=== PATIENT | male | born 1945 | race Caucasian/White ===

== ENCOUNTER 2021-01-30 15:28 | Emergency (ER) | payer OTHER ==
--- NOTE | 2021-01-30 15:50 | ED ---
General Adult HPI - General Stated complaint: CPR - History of Present Illness Initial comments: Dictation was produced using [employer] dictation software. please excuse any grammatical, word or spelling errors. Chief Complaint: 75-year-old male brought in for cardiac arrest History of Present Illness: 75-year-old male who is brought in by EMS for cardiac arrest. Patient allegedly had a witnessed arrest at 2:34 PM. He was at a residence house in a hole when all of a sudden he collapsed. EMS was called right away in CPR was initiated. EMS reports that immediately on scene CPR was started. His initial rhythm was ventricular fibrillation. He was given defibrillation by EMS. Next monitor check patient allegedly had asystole. CPR was continued and patient was then found to be asystole. Shortly after patient's rhythm changed to pulseless electrical activity. Patient was driven to the emergency department. He arrived to us at approximately 3:31 PM. He was on the Sanjeev monitor. EMS reports that patient has extensive history of coronary artery disease status post multivessel coronary artery bypass grafting. Patient was ventilated using a Moustapha tube. Unable to obtain PHYSICAL EXAM: General Impression: Obtunded, unresponsive HEENT: Normocephalic atraumatic, cyanotic, pale Cardiovascular: No palpable pulse Chest: Bilateral breath sounds Abdomen: Obese abdomen Musculoskeletal: Cyanotic, pale extremities Motor: No movement Neurological: Pupils 4 mm, nonreactive ED course: 75-year-old male received in our emergency department at approximately 3:31 PM. According to history of present illness agents cardiac arrest likely secondary to myocardial infarction. He had undergone almost approximately one hour of cardiopulmonary resuscitation prior to arrival. Patient did not have a palpable pulse. He did have a very thready ultrasound will pulse. CPR was continued for approximately 3 cycles. Point of care bedside ultrasound of the heart did not show any life-sustaining cardiac activity. Patient was given calcium, atropine, sodium bicarbonate with no change. Patient became more bradycardic. Time of was announced at 3:39 PM. was notified of patient's expiration. Case discussed with medical records clerk. - Related Data Home Medications Medication Instructions Recorded Confirmed Aspirin [Adult Low Dose Aspirin EC] 81 mg PO QAM 11/23/18 11/23/18 Furosemide [Lasix] 80 mg PO QAM 11/23/18 11/23/18 Isosorbide Dinitrate 30 mg PO QAM 11/23/18 11/23/18 Losartan [Cozaar] 25 mg PO QAM 11/23/18 11/23/18 Metoprolol Succinate [Toprol XL] 12.5 mg PO QAM 11/23/18 11/23/18 Rosuvastatin Calcium 5 mg PO HS 11/23/18 11/23/18 amLODIPine [Norvasc] 10 mg PO QAM 11/23/18 11/23/18 Allergies Allergy/AdvReac Type Severity Reaction Status Date / Time No Known Allergies Allergy Verified 01/30/21 16:53 Review of Systems ROS Statement: Those systems with pertinent positive or pertinent negative responses have been documented in the HPI. ROS Other: All systems not noted in ROS Statement are negative. Past Medical History Past Medical History: Hyperlipidemia, Hypertension Additional Past Medical History / Comment(s): AGENT ORANGE HAS CAUSED CARDIAC DISEASE. History of Any Multi-Drug Resistant Organisms: None Reported Past Surgical History: Cholecystectomy, Coronary Bypass/CABG, Heart Catheterization, Heart Catheterization With Stent Additional Past Surgical History / Comment(s): CABG IN 2009 EST. Past Anesthesia/Blood Transfusion Reactions: No Reported Reaction Date of Last Stent Placement:: 2009 Past Psychological History: No Psychological Hx Reported Past Alcohol Use History: None Reported Past Drug Use History: None Reported - Past Family History Brother(s) Family Medical History: Cancer, Deep Vein Thrombosis (DVT) Additional Family Medical History / Comment(s): LYMPHOMA Critical Care Time Critical Care Time: Yes Total Critical Care Time: 33 Disposition Clinical Impression: Cardiac arrest Disposition: Condition: Undetermined Referrals: [facility],Clinic [Primary Care Provider] - 1-2 days Preliminary Cause of : cardiac arrest
== END 2021-01-30 17:34 | disposition expired ==
LOC: EC 15:28
DX: I46.9 Cardiac arrest, cause unspecified (principal); I10 Essential (primary) hypertension; I25.10 Atherosclerotic heart disease of native coronary artery without angina pectoris; E78.5 Hyperlipidemia, unspecified; Z79.82 Long term (current) use of aspirin; Z95.1 Presence of aortocoronary bypass graft
CPT/HCPCS: 92950; 99291